=== PATIENT | male | born 2000 | race Asian ===

== ENCOUNTER 2024-08-09 20:32 | Emergency (ER) | payer OTHER ==
[~2024-08-09] VITALS: Ht 142.2 cm; Wt 47.7 kg
[2024-08-09 20:53] VITALS: TEMP 98.7
[2024-08-09 21:02] VITALS: BP 139/84; PULSE 68; RESP 18; O2SAT 98
== END 2024-08-10 00:20 | disposition home or self-care (01) ==
LOC: EMS 20:32
DX: S61.307A Unspecified open wound of left little finger with damage to nail, initial encounter (principal); X58.XXXA Exposure to other specified factors, initial encounter; Y93.89 Activity, other specified; Y92.89 Other specified places as the place of occurrence of the external cause; Y99.8 Other external cause status
CPT/HCPCS: 12001; 99283